=== PATIENT | male | born 1965 | race Two or more races ===

== ENCOUNTER 2023-07-14 20:15 | Emergency (ER) | payer MEDICAID ==
[~2023-07-14] VITALS: Ht 182.9 cm; Wt 120.0 kg
[2023-07-14] MEDS ORDERED: CEPH500C PO (23:10)
[2023-07-14] MEDS ORDERED: IBUP1TAB5 PO (23:10)
[2023-07-14] MEDS ORDERED: MUPI2OIN2 EX (23:10)
[2023-07-14] MEDS ORDERED: LIDOCAINE 1% HCL (LOCAL ANESTH.) INJ 20ML MDV ID ONE (23:15)
[2023-07-14] MEDS ORDERED: TETANUS-DIPTH-ACEL PERTUSSIS 0.5ML SYR Tdap IM ONE (23:15)
[2023-07-14] MEDS ORDERED: NEOMYCIN-BACITRACIN-POLYM UNITDOSE PKG TOP OINT TOP ONE (23:15)
[2023-07-14] MEDS ORDERED: HYDROcodone-ACET 5/325MG TAB PO ONE (23:15)
[2023-07-14 23:19] VITALS: BP 136/90; PULSE 82; RESP 18; TEMP 98.4; O2SAT 94
== END 2023-07-14 23:33 | disposition home or self-care (01) ==
LOC: ER 20:15 → EDBD 20:15 → ER 23:21
DX: S61.412A Laceration without foreign body of left hand, initial encounter (principal); I10 Essential (primary) hypertension; E11.9 Type 2 diabetes mellitus without complications; Z86.73 Personal history of transient ischemic attack (TIA), and cerebral infarction without residual deficits; W26.8XXA Contact with other sharp object(s), not elsewhere classified, initial encounter; Y93.89 Activity, other specified; Y92.89 Other specified places as the place of occurrence of the external cause; Y99.0 Civilian activity done for income or pay
CPT/HCPCS: 12002; 90471; 90715; 99283; J2001